=== PATIENT | female | born 1970 | race Asian ===

== ENCOUNTER 2016-07-30 11:01 | Emergency (ER) | payer SELFPAY ==
[~2016-07-30] VITALS: Ht 162.6 cm; Wt 65.0 kg
[2016-07-30 11:15] VITALS: Ht 162.6 cm; Wt 65.0 kg
[2016-07-30] MEDS ORDERED: SOD CHLORIDE 0.9% 1,000 ML IV STA (11:36)
[2016-07-30] MEDS ORDERED: ACETAMINOPHEN 500 MG TAB PO STA (11:36)
[2016-07-30] MEDS ORDERED: ONDANSETRON 4 MG INJ IV STA (11:36)
[2016-07-30] MEDS ORDERED: morphine 4 MG/ML VIAL IV STA (11:36)
--- NOTE | 2016-07-30 11:51 | ERD ---
ER Documentation Chief Complaint Date/Time DATE: 07/30/16 TIME: 11:48 Chief Complaint BACK PAIN,NAUSEA,VOMITING,FEVER HPI This 45-year-old female who presents the emergency department today complaining of right-sided flank pain for the past 3 days. She states she started vomiting this morning. States that a couple weeks ago she did notice some dysuria. States that she started with a fever today. States she took ibuprofen and Tylenol a couple of hours ago. States her last menstrual period was 4 days ago. States that she lives in [place]. Denies any diarrhea, sore throat ROS All systems reviewed and are negative except as per history of present illness. Medications Home Meds Active Scripts Ibuprofen* (Motrin*) 600 Mg Tab, 600 MG PO Q6, #30 TAB Prov:DEANNA LEIGH PA-C 07/30/16 Polyethylene Glycol* (Miralax*) 17 Gm Powd.pack, 17 GM PO DAILY, #15 Prov:DEANNA LEIGH PA-C 07/30/16 Ondansetron Hcl* (Zofran*) 4 Mg Tablet, 4 MG PO Q6H for NAUSEA AND/OR VOMITING, #30 TAB Prov:DEANNA LEIGH PA-C 07/30/16 Hydrocodone/Acetaminophen ([place] 5-325 Tablet) 1 Each Tablet, 1 TAB PO Q6H Y for PAIN, #12 TAB Prov:DEANNA LEIGH PA-C 07/30/16 Ciprofloxacin Hcl* (Ciprofloxacin Hcl*) 500 Mg Tablet, 500 MG PO BID for 10 Days , TAB Prov:DEANNA LEIGH PA-C 07/30/16 Allergies Allergies: Coded Allergies: No Known Allergy (Unverified , 07/30/16) PMhx/Soc Medical and Surgical Hx: pt denies Medical Hx, pt denies Surgical Hx Hx Alcohol Use: No Hx Substance Use: No Physical Exam Vitals Vital Signs Date Time Temp Pulse Resp B/P Pulse Ox O2 Delivery O2 Flow Rate FiO2 07/30/16 11:15 102.0 78 18 105/74 98 Physical Exam Const: Mild distress Head: Atraumatic Eyes: Normal Conjunctiva ENT: Normal External Ears, Nose and Mouth. Neck: Full range of motion..~ No meningismus. Resp: Clear to auscultation bilaterally Cardio: Regular rate and rhythm, no murmurs Abd: Soft, diffuse abdominal tenderness non distended. Normal bowel sounds Skin: No petechiae or rashes Back: No midline tenderness. Right-sided flank pain. Positive CVA tenderness. Ext: No cyanosis, or edema Neur: Awake and alert Psych: Normal Mood and Affect Result Diagram: 07/30/16 1200 07/30/16 1200 Results 24 hrs Laboratory Tests Test 07/30/16 11:57 07/30/16 12:00 Bedside Urine pH (LAB) 5.5 Bedside Urine Protein (LAB) 2+ Bedside Urine Glucose (UA) Negative Bedside Urine Ketones (LAB) Negative Bedside Urine Blood 2+ Bedside Urine Nitrite (LAB) Positive Bedside Urine Leukocyte Esterase (L 1+ White Blood Count 17.210^3/ul Red Blood Count 4.5310^6/ul Hemoglobin 14.0g/dl Hematocrit 42.1% Mean Corpuscular Volume 92.9fl Mean Corpuscular Hemoglobin 30.9pg Mean Corpuscular Hemoglobin Concent 33.3g/dl Red Cell Distribution Width 12.9% Platelet Count 93107^3/UL Mean Platelet Volume 10.2fl Neutrophils % 82.9% Lymphocytes % 6.1% Monocytes % 9.9% Eosinophils % 0.1% Basophils % 0.2% Nucleated Red Blood Cells % 0.0/100WBC Neutrophils # 14.310^3/ul Lymphocytes # 1.110^3/ul Monocytes # 1.710^3/ul Eosinophils # 0.010^3/ul Basophils # 0.010^3/ul Nucleated Red Blood Cells # 0.010^3/ul Urine Color LT. YELLOW Urine Clarity CLOUDY Urine pH 6.0 Urine Specific [place] 1.015 Urine Ketones NEGATIVE Urine Nitrite POSITIVE Urine Bilirubin NEGATIVE Urine Urobilinogen 0.2 E.U./dL Urine Leukocyte Esterase 2+ Urine Microscopic RBC 2-5/HPF Urine Microscopic WBC >200/HPF Urine Epithelial Cells FEW Urine Bacteria FEW Urine Hemoglobin 3+ Urine Glucose NEGATIVE% Urine Total Protein 1+ Sodium Level 136mmol/L Potassium Level 3.4mmol/L Chloride Level 104mmol/L Carbon Dioxide Level 23mmol/L Anion Gap 12 Blood Urea Nitrogen 15mg/dl Creatinine 0.75mg/dl Glucose Level 115mg/dl Calcium Level 8.7mg/dl Total Bilirubin 0.9mg/dl Direct Bilirubin 0.00mg/dl Indirect Bilirubin 0.9mg/dl Aspartate Amino Transf (AST/SGOT) 30IU/L Alanine Aminotransferase (ALT/SGPT) 36IU/L Alkaline Phosphatase 76IU/L Total Protein 7.0g/dl Albumin 3.8g/dl Globulin 3.20g/dl Albumin/Globulin Ratio 1.18 Lipase 55U/L Current Medications Medications (Trade) Dose Ordered Sig/[place] Route PRN Reason Start Time Stop Time Status Last Admin Dose Admin Sodium Chloride (NS) 1,000 ml @ 1,000 mls/hr Q1H STAT IV 07/30/16 11:36 07/30/16 12:37 DC 07/30/16 11:54 Morphine Sulfate (morphine) 4 mg ONCE STAT IV 07/30/16 11:36 07/30/16 11:37 Cancel Ondansetron HCl (Zofran Inj) 4 mg ONCE STAT IV 07/30/16 11:36 07/30/16 11:40 DC 07/30/16 11:53 Acetaminophen (Tylenol Tab) 500 mg ONCE STAT PO 07/30/16 11:36 07/30/16 11:40 DC 07/30/16 11:53 Ketorolac Tromethamine (Toradol) 30 mg ONCE STAT IV 07/30/16 12:03 07/30/16 12:04 DC 07/30/16 12:10 Ceftriaxone Sodium (Rocephin) 1 gm ONCE ONCE IVPB 07/30/16 14:00 07/30/16 14:01 DC 07/30/16 14:01 DIAGNOSTIC IMAGING REPORT 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 CLINICAL INDICATION: Abdominal pain with fever and vomiting. TECHNIQUE: Thin section axial, coronal and sagittal images were performed through the abdomen and pelvis without contrast. Radiation Dose: CTDI: 6.26 and DLP: 333.16. One or more of the following dose reduction techniques were used: - Automated exposure control. - Adjustment of the mA and/or kV according to patient size. Use of iterative reconstruction technique. COMPARISON: Chest x-ray 05/17/2016 06:18 a.m. FINDINGS: Soft tissues: Bilateral augmentation implants are in place.. Lungs and pleural spaces: There are plate-like densities consistent with scarring or atelectasis in the periphery of the left lower lobe and lingula. No pleural effusion is present. Heart: Normal. The liver, common bile duct and gallbladder: The liver measured 13.8 cm AP with no hepatic mass or intrahepatic biliary dilatation noted. The gallbladder is incompletely distended without evidence of cholelithiasis. Gastrointestinal: There is no hiatal hernia. Gastric wall thickening is attributed to incomplete distension. The small bowel loops are normal. There is moderate fecal material throughout the colon. No inguinal hernia or umbilical hernia is identified. Pancreas: Normal. The pancreas is partially obscured by surrounding bowel loops. Evaluation is limited due to lack of IV and oral contrast. Kidneys, bladder and adrenal glands : The adrenal glands are normal. There is a 2 mm nonobstructive nephrolith in the lower third of the upper right kidney. The urinary bladder is normal. Spleen: Normal. Lymph nodes: Normal. Reproductive system and pelvis : The uterus anteflexed measuring 8 cm sagittal by 4.2 cm AP by up to 6.7 cm transverse. No abnormal adnexal mass or free fluid is noted in the pelvis. Bony elements: There are degenerative osteophytes in the mid and lower lumbar spine. Vasculature: Normal. IMPRESSION: 1. Bilateral augmentation implants are in place. 2. 2 mm nonobstructive nephrolith lower portion upper third right kidney. 3. Constipation. RPTAT:AAJJ Physician Caesar Date Time Electronically viewed and signed by Physician Caesar on 07/30/2016 13:36 MIGUELINA/ CC: DEANNA LEIGH PA-C Procedures/[facility] This a 45-year-old female who presents to the emergency department today complaining of right-sided back pain for the past 3 days and fever and vomiting that started today. Patient was febrile at 102 here in the emergency department. She did have some right-sided flank pain and diffuse abdominal pain as well. I did obtain laboratory work as well as imaging Laboratory work shows an elevated white blood cell count of 17.2. She is not anemic. Platelets are within normal limits. Potassium is very mildly decreased otherwise electrolytes are within normal limits. Liver function is within normal limits. Lipase is within normal limits per UA shows 2+ leukocyte esterase. Positive nitrites and greater than 200 microscopic white blood cells. Patient symptoms at this time most consistent with pyelonephritis and nephrolithiasis. Urine test is negative CT abdomen pelvis noncontrast bilateral augmentation implants in place. There is a 2 mm nonobstructive nephrolith in the lower portion of the upper third right kidney. Patient also has constipation. There is no evidence of cholelithiasis. There is no abnormal adnexal mass or free fluid noted in the pelvis. Patient was given IV fluids, Zofran, Toradol and Tylenol here in the emergency department. Patient refused morphine and stated that it was "too strong for". Patient reported that her pain was well controlled and reported feeling better and was asking to eat something.. Patient given a prescription for [place] for home, Zofran, and Motrin as well as MiraLAX and Cipro. At this time the patient is stable for discharge and outpatient management. Patient should follow up with their PCP in the next 1-2 days. They may return to the emergency department sooner for any persistent or worsening of symptoms. Patient understood and agreed with the plan. Discussed the patient with Dr. Banks and he is in agreement with the plan. Departure Diagnosis: Primary Impression: Pyelonephritis Condition: DEANNA Green PA-C Jul 30, 2016 11:51
[2016-07-30 11:57] LABS: URINE BLOOD (Dip) POC 2+ (NEGATIVE)
[2016-07-30] MEDS ORDERED: KETOROLAC 30 MG INJ IV STA (12:03)
[2016-07-30 12:19] LABS: ADD SCAN DIFF NO
[2016-07-30 12:22] LABS: ABNORMAL IP MESSAGE 1; BASOPHILS % 0.2 % (0.0-2.0); EOSINOPHILS % 0.1 % (0.0-7.0); HEMATOCRIT 42.1 % (37.0-47.0); LYMPHOCYTES # 1.1 10^3/ul (0.8-2.9); LYMPHOCYTES % 6.1 % (15.0-51.0); MEAN CORPUSCULAR HEMOGLOBIN 30.9 pg (29.0-33.0); MEAN CORPUSCULAR HGB CONC 33.3 g/dl (32.0-37.0); MEAN CORPUSCULAR VOLUME 92.9 fl (82.0-101.0); MEAN PLATELET VOLUME 10.2 fl (7.4-10.4); MONOCYTE # 1.7 10^3/ul (0.3-0.9); MONOCYTES % 9.9 % (0.0-11.0); NEUTROPHIL # 14.3 10^3/ul (1.6-7.5); NEUTROPHILS % 82.9 % (39.0-77.0); PLATELET COUNT 223 10^3/UL (140-415); RED BLOOD COUNT 4.53 10^6/ul (4.20-5.40); RED CELL DISTRIBUTION WIDTH 12.9 % (11.5-14.5); WHITE BLOOD COUNT 17.2 10^3/ul (4.8-10.8)
[2016-07-30 12:36] LABS: ADD UMIC YES; URINE BILIRUBIN (Dip) NEGATIVE (NEGATIVE); URINE BLOOD (Dip) 3+ (NEGATIVE); URINE COLOR LT. YELLOW (YELLOW); URINE GLUCOSE (Dip) NEGATIVE (NEGATIVE); URINE KETONES (Dip) NEGATIVE (NEGATIVE); URINE LEUKOCYTE ESTERASE (Dip) 2+ (NEGATIVE); URINE NITRITE (Dip) POSITIVE (NEGATIVE); URINE TOTAL PROTEIN (Dip) 1+ (NEGATIVE); URINE UROBILINOGEN (Dip) 0.2 E.U./dL (0.1-1.0)
[2016-07-30 12:38] LABS: ALBUMIN 3.8 g/dl (3.3-4.9); ALBUMIN/GLOBULIN RATIO 1.18; BILIRUBIN,INDIRECT 0.9 mg/dl (0-1.1); BILIRUBIN,TOTAL 0.9 mg/dl (0.2-1.3); CALCIUM 8.7 mg/dl (8.4-10.2); CREATININE 0.75 mg/dl (0.44-1.00); POTASSIUM 3.4 mmol/L (3.5-5.1)
[2016-07-30 12:57] LABS: BACTERIA,URINE FEW
--- NOTE | 2016-07-30 13:37 | RADRPT ---
PROCEDURE: CT scan of the abdomen and pelvis without IV contrast. CLINICAL INDICATION: Abdominal pain with fever and vomiting. TECHNIQUE: Thin section axial, coronal and sagittal images were performed through the abdomen and pelvis without contrast. Radiation Dose: CTDI: 6.26 and DLP: 333.16. One or more of the following dose reduction techniques were used: - Automated exposure control. - Adjustment of the mA and/or kV according to patient size. Use of iterative reconstruction technique. COMPARISON: Chest x-ray 05/17/2016 06:18 a.m. FINDINGS: Soft tissues: Bilateral augmentation implants are in place.. Lungs and pleural spaces: There are plate-like densities consistent with scarring or atelectasis in the periphery of the left lower lobe and lingula. No pleural effusion is present. Heart: Normal. The liver, common bile duct and gallbladder: The liver measured 13.8 cm AP with no hepatic mass or i ntrahepatic biliary dilatation noted. The gallbladder is incompletely distended without evidence of cholelithiasis. Gastrointestinal: There is no hiatal hernia. Gastric wall thickening is attributed to incomplete di stension. The small bowel loops are normal. There is moderate fecal material throughout the colon. No inguinal hernia or umbilical hernia is identified. Pancreas: Normal. The pancreas is partially obscured by surrounding bowel loops. Evaluation is beach ited due to lack of IV and oral contrast. Kidneys, bladder and adrenal glands : The adrenal glands are normal. There is a 2 mm nonobstructive nephrolith in the lower third of the upper right kidney. The urinary bladder is normal. Spleen: Normal. Lymph nodes: Normal. Reproductive system and pelvis : The uterus anteflexed measuring 8 cm sagittal by 4.2 cm AP by up to 6.7 cm transverse. No abnormal adnexal mass or free fluid is noted in the pelvis. Bony elements: There are degenerative osteophytes in the mid and lower lumbar spine. Vasculature: Normal. IMPRESSION: 1. Bilateral augmentation implants are in place. 2. 2 mm nonobstructive nephrolith lower portion upper third right kidney. 3. Constipation. RPTAT:AAJJ Physician Caesar Date Time Electronically viewed and signed by Hair Melissa, Physician on 07/30/2016 13:36 JM/
[2016-07-30] MEDS ORDERED: CEFTRIAXONE 1 GM INJ IVPB ONE (14:00)
[2016-07-30] MEDS ORDERED: CIPR500T4 PO (14:50)
[2016-07-30] MEDS ORDERED: HYDR-906 PO (14:51)
[2016-07-30] MEDS ORDERED: POLY17PO6 PO (14:51)
[2016-07-30] MEDS ORDERED: IBUP-1542 PO (14:51)
[2016-07-30] MEDS ORDERED: ONDA4TAB8 PO (14:51)
== END 2016-07-30 15:08 | disposition home or self-care (01) ==
LOC: FTE 11:01
DX: N12 Tubulo-interstitial nephritis, not specified as acute or chronic (principal); R11.2 Nausea with vomiting, unspecified
CPT/HCPCS: 74176; 80053; 81001; 83690; 85025; 87086; J0696; J1885; J2405; J7030; 36415; 81003; 96374; 96375; J2270

== ENCOUNTER 2018-10-09 15:14 | Emergency (ER) | payer BC ==
[~2018-10-09] VITALS: Ht 157.5 cm; Wt 54.7 kg
[~2018-10-09 15:14] MED LIST: CIPR500T4 PO; HYDR-4011 PO; IBUP-1542 PO; ONDA4TAB8 PO; POLY17PO6 PO
[2018-10-09 15:22] VITALS: Ht 157.5 cm; Wt 54.7 kg
[2018-10-09] MEDS ORDERED: SOD CHLORIDE 0.9% 1,000 ML IV STA (16:35)
[2018-10-09] MEDS ORDERED: KETOROLAC 15 MG INJ IV STA (16:35)
[2018-10-09] MEDS ORDERED: ONDANSETRON 4 MG INJ IV STA (16:35)
[2018-10-09] MEDS ORDERED: ONDANSETRON (ODT) 4 MG TAB ODT STA (16:50)
[2018-10-09] MEDS ORDERED: OXYCODONE/ACETAMINOPHEN (5/325) TAB PO ONE (17:00)
[2018-10-09] MEDS ORDERED: IBUP-1542 PO (17:14)
[2018-10-09] MEDS ORDERED: CEPH-443 PO (17:14)
[2018-10-09 17:26] VITALS: BP 132/76; PULSE 78; RESP 16
[2018-10-09] MEDS ORDERED: CEPHALEXIN 500 MG CAP PO ONE (17:30)
[2018-10-09] MEDS ORDERED: IBUPROFEN 600 MG TAB PO ONE (17:30)
--- NOTE | 2018-10-09 22:01 | ERD ---
ER Documentation Chief Complaint Chief Complaint Pt has hx of kidney infection, c/o L flank pain, hematuria HPI This is a 47-year-old woman complaining of 1 day left flank pain and dysuria with intermittent hematuria and increased urinary frequency. She has a long history of bilateral nephrolithiasis and has frequent recurrent urinary tract infections. She states she has been using ibuprofen at home with some relief in her suprapubic discomfort. Her suprapubic abdominal pain radiates to the left flank. She denies fevers or chills, no vomiting or diarrhea, no vaginal bleeding, no chest pain or shortness of breath ROS All systems reviewed and are negative except as per history of present illness. Medications Home Meds Active Scripts Ibuprofen* (Motrin*) 600 Mg Tab, 600 MG PO Q8 PRN for PAIN AND/OR INFLAMMATION, #30 TAB Prov:MIKE FRANCIS MD 10/09/18 Cephalexin* (Keflex*) 500 Mg Capsule, 500 MG PO QID for 7 Days, CAP Prov:MIKE FRANCIS MD 10/09/18 Discontinued Scripts Ibuprofen* (Motrin*) 600 Mg Tab, 600 MG PO Q6, #30 TAB Prov:DEANNA LEIGH PA-C 07/30/16 Polyethylene Glycol* (Miralax*) 17 Gm Powd.pack, 17 GM PO DAILY, #15 Prov:DEANNA LEIGH PA-C 07/30/16 Ondansetron Hcl* (Zofran*) 4 Mg Tablet, 4 MG PO Q6H for NAUSEA AND/OR VOMITING, #30 TAB Prov:DEANNA LEIGH PA-C 07/30/16 Hydrocodone/Acetaminophen ([place] 5-325 Tablet) 1 Each Tablet, 1 TAB PO Q6H PRN for PAIN, #12 TAB Prov:DEANNA LEIGH PA-C 07/30/16 Ciprofloxacin Hcl* (Ciprofloxacin Hcl*) 500 Mg Tablet, 500 MG PO BID for 10 Days, TAB Prov:DEANNA LEIGH PA-C 07/30/16 Allergies Allergies: Coded Allergies: No Known Allergy (Unverified , 10/09/18) PMhx/Soc History of kidney stones and urinary tract infections Medical and Surgical Hx: pt denies Medical Hx, pt denies Surgical Hx Hx Alcohol Use: No Hx Substance Use: No Smoking Status: Never smoker FmHx Family History: No diabetes Physical Exam Vitals Vital Signs Date Temp Pulse Resp B/P (MAP) Pulse Ox O2 O2 Flow FiO2 Time Delivery Rate 10/09/18 97.9 78 16 132/76 100 Room Air 17:26 (94) 10/09/18 98.7 79 16 140/83 100 15:22 (102) Physical Exam GENERAL: Well-developed, well-nourished, well-hydrated, mild discomfort, af ebrile HEENT: Moist mucous membranes, pink conjunctiva, no cervical spine tenderness or step-off deformities, no goiter, no jaundice or icterus, extraocular movements intact without pain. NEURO: Alert and oriented 3, cranial nerves II through XII intact bilaterally, pupils equal round reactive to light, no focal deficits or facial asymmetry, sensation intact distally Strength 5/5 in upper and lower extremities bilaterally CARDIAC: Regular rate and rhythm, no murmurs rubs or gallops LUNGS: Clear bilaterally no wheezing crackles or stridor ABDOMEN: Mild suprapubic tenderness to touch, no guarding or rigidity, mild left flank tenderness to palpation Results 24 hrs Laboratory Tests Test 10/09/18 16:39 Urine Color YELLOW Urine Clarity CLOUDY Urine pH 5.0 Urine Specific [place] 1.019 Urine Ketones NEGATIVE mg/dL Urine Nitrite NEGATIVE mg/dL Urine Bilirubin NEGATIVE mg/dL Urine Urobilinogen NEGATIVE mg/dL Urine Leukocyte Esterase 1+ [place]/ul Urine Microscopic RBC > 182 /HPF Urine Microscopic WBC 36 /HPF Urine Squamous Epithelial Cells FEW /HPF Urine Mucus MODERATE /HPF Urine Yeast (Budding) MODERATE /HPF Urine Hemoglobin 3+ mg/dL Urine Glucose NEGATIVE mg/dL Urine Total Protein 1+ mg/dl Current Medications Medications Dose Sig/[place] Start Time Status Last (Trade) Ordered Route PRN Stop Time Admin Dose Reason Admin Sodium 1,000 ml @ Q1H STAT 10/09/18 DC Chloride 1,000 mls/hr IV 16:35 10/09/18 16:51 Ondansetron 4 mg ONCE STAT 10/09/18 DC HCl (Zofran IV 16:35 Inj) 10/09/18 16:51 Ketorolac 15 mg ONCE STAT 10/09/18 DC Tromethamine IV 16:35 (Toradol) 10/09/18 16:51 Oxycodone/ 1 tab ONCE ONCE 10/09/18 DC Acetaminophen PO 17:00 (Percocet 10/09/18 17:03 (5/ 325)) Ondansetron 4 mg ONCE STAT 10/09/18 DC HCl (Zofran ODT 16:50 Odt) 10/09/18 16:51 Ibuprofen 600 mg ONCE ONCE 10/09/18 DC 10/09/18 (Motrin) PO 17:30 17:20 10/09/18 17:30 Cephalexin 500 mg ONCE ONCE 10/09/18 DC 10/09/18 (Keflex) PO 17:30 17:21 10/09/18 17:30 Procedures/MDM I initially ordered an IV line and blood work although patient refused. She did not want any analgesic except for ibuprofen. I did explain to her that she may be at risk for acute pyelonephritis or infected stone although despite my and the nurses explanation she refused all further intervention and stated she would just like ibuprofen and would like to have her urine checked. I canceled my initial orders given her refusal. Urine analysis was positive for infection. I administered cephalexin 500 mg p.o. and ibuprofen 600 mg p.o. Did tell her that refusing further work-up and possible imaging she may be delay ing her own diagnosis, may result in misdiagnosis, may result in sepsis, collapse, surgical emergency, and even . Despite my explanation she refused all further intervention and just wanted a prescription for her suspected urinary tract infection. Departure Diagnosis: Primary Impression: Flank pain Additional Impressions: Fungal colonization of urinary tract Urinary tract infection Urinary tract infection type: acute cystitis Hematuria presence: with hematuria Qualified Codes: N30.01 - Acute cystitis with hematuria Condition: Good Patient Instructions: Bladder Infection, Female (Adult) MIKE FRANCIS MD Oct 09, 2018 22:01
== END 2018-10-09 17:25 | disposition home or self-care (01) ==
LOC: E/R 15:14
DX: N30.01 Acute cystitis with hematuria (principal); B37.41 Candidal cystitis and urethritis
CPT/HCPCS: 81001; 99283; J7030; J1885; J2405